=== PATIENT | male | born 1980 | race Caucasian/White ===

== ENCOUNTER 2019-01-19 17:23 | Emergency (ER) | payer OTHER ==
--- NOTE | 2019-01-19 17:53 | EDPHY ---
H & P Time Seen by Provider: 01/19/19 17:37 HPI/ROS: CHIEF COMPLAINT: Fall from skateboard HISTORY OF PRESENT ILLNESS: Patient is a 30-year-old male who presents emergency department after falling off his son skateboard. Patient states he fell forward landing on his right hand. He also struck his right cheek. He did not lose consciousness. He does not have a headache. No neck pain. No focal weakness or numbness. The patient complains moderate medial right hand pain. This is worse with movement. REVIEW OF SYSTEMS: 10 systems were reveiwed and are negative with the exception of the elements mentioned in the history of present illness. Past Medical/Surgical History: Denies Smoking Status: Never smoked Physical Exam: Vitals noted GENERAL: Well-appearing, in no acute distress, alert. HEAD: No evidence of trauma. EYES: PERRLA, EOMI, normal to inspection. ENT/face: Airway intact, no dental or oral injury, no malocclusion. The patient has an abrasion on his right cheek. No significant bony tenderness to palpation NECK: The trachea is midline. There is no crepitus. The C-spine is nontender. NEXUS criteria is negative (no midline tenderness, no distracting injury, no altered mental status, no recent alcohol use, no focal neurologic deficit). RESPIRATORY: [Clear to auscultation bilaterally, no rales, rhonchi or wheezing. CVS: Regular rate and rhythm, no rubs, murmurs, or gallops. ABDOMEN: Soft, nontender, nondistended. Pelvis: Stable. No tenderness palpation. BACK: Normal to inspection, no spinal tenderness, no spinal step off, no notable bruising or abrasions. SKIN: Normal color, warm, dry. No pallor or diaphoresis. EXTREMITIES: Right upper extremity: The patient has swelling over his 5th metacarpal. There is small abrasion. No laceration. Neurovascular intact distally. Left upper extremity: Atraumatic. No visible signs of trauma. No tenderness palpation. Neurovascular intact distally. Right lower extremity: The abrasion over right proximal fibula. No tenderness palpation. Neurovascular intact distally. Left lower extremity: Atraumatic. No visible signs of trauma. No tenderness palpation. Neurovascular intact distally. NEURO/PSYCH: Alert and oriented x 3, GCS 15, normal mood and affect, normal motor sensory exam. Constitutional: Initial Vital Signs Temperature (C) 37.1 C 01/19/19 17:27 Heart Rate 78 01/19/19 17:27 Respiratory Rate 17 01/19/19 17:27 Blood Pressure 146/96 H 01/19/19 17:27 O2 Sat (%) 98 01/19/19 17:27 O2 Delivery Mode Room Air Allergies/Adverse Reactions: No Known Allergies Allergy (Unverified 01/19/19 17:26) Home Medications: Medication Instructions Recorded NK [No Known Home Meds] 01/19/19 Medical Decision Making - Diagnostics Imaging Results: Imaging Impressions Hand X-Ray 01/19/19 17:48 Impression: Negative right hand radiographs. ED Course/Re-evaluation: In the emergency department I discussed possible etiologies with the patient. Answered all his questions. An x-ray of his right hand was ordered. I do not feel the patient needs imaging of his brain or cervical spine. Right hand x-ray: Please refer the dictated report. Negative Discussed results with the patient. I answered all his questions. Patient was given follow-up with Orthopedics. He is given warnings prior to leaving. He will return with worsening symptoms. Differential Diagnosis: My differential includes but is not limited to fracture, dislocation, contusion , sprain, strain, abrasion. I do not feel the patient has subarachnoid hemorrhage, subdural hematoma epidural hematoma. I considered concussion, spinal injury. Departure - Departure Disposition: Home, Routine, Self-Care Clinical Impression: Hand contusion Qualifiers: Encounter type: initial encounter Laterality: right Qualified Code(s): S60.221A - Contusion of right hand, initial encounter Facial contusion Qualifiers: Encounter type: initial encounter Qualified Code(s): S00.83XA - Contusion of other part of head, initial encounter Condition: Good Instructions: Contusion in Adults (ED), Head Injury (ED) Additional Instructions: Return with increasing headache, neck pain, vomiting or any other concerns. Initial hand x-ray was negative. You been given follow-up information for Orthopedics. If youhave ongoing hand pain, call to make an appointment. Referrals: NONE *PRIMARY CARE P,. [Primary Care Provider] - As per Instructions Isidro Cordon MD [Medical Doctor] - 5-7 days, call for appt.
[2019-01-19 18:05] VITALS: BP 145/90
== END 2019-01-19 18:42 | disposition home or self-care (01) ==
DX: S60.221A Contusion of right hand, initial encounter (principal); S00.83XA Contusion of other part of head, initial encounter; V00.131A Fall from skateboard, initial encounter; Y93.51 Activity, roller skating (inline) and skateboarding; Y92.9 Unspecified place or not applicable; Y99.9 Unspecified external cause status